=== PATIENT | female | born 1970 | race American Indian/Alaskan Native ===

== ENCOUNTER 2016-06-29 13:28 | Outpatient (CLI) | payer BC ==
--- NOTE | 2016-06-29 14:16 | XRay Report ---
RIGHT KNEE, 3 views: History: Right knee pain. The bony architecture is intact without evidence of fracture or dislocation. No significant soft tissue abnormality is seen. IMPRESSION: Unremarkable right knee.
== END 2016-06-29 13:29 | disposition home or self-care (01) ==
LOC: XRAY 13:28
PROVIDERS: ATTEND Internal Medicine
DX: M25.561 Pain in right knee (principal)

== ENCOUNTER 2016-08-31 14:41 | Outpatient (CLI) | payer BC ==
--- NOTE | 2016-08-31 15:21 | Mammography Report ---
Bilateral mammogram: No previous studies are labeled. CAD study utilized. Findings: Predominance adipose tissue bilaterally. Circumscribed density upper outer posterior left breast. Circumscribed density mid right breast. No microcalcification. Normal axilla. Impression: Circumscribed density right and left breast. Comparison with previous studies recommended. If previous study is not available spot mag and sonographic examination advised. BI-RADS CATEGORY: 0 = Needs additional imaging evaluation ACR BI-RADS MAMMOGRAPHIC CODES: 0 = Needs additional imaging evaluation; 1 = Negative; 2 = Benign; 3 = Probably benign; 4 = Suspicious; 5 = Malignant; 6 = Known biopsy-proven malignancy COMMENT: 1. Dense breast tissue, i.e., adenosis, fibrocystic changes, etc., may obscure an underlying neoplasm. 2. Approximately 10% of cancers are not detected with mammography. 3. A negative mammography report should not delay biopsy if a clinically suspicious mass is present. COMMENT: Patient follow-up letters are generated in [employer].
== END 2016-08-31 14:42 | disposition home or self-care (01) ==
LOC: MAMMO 14:41
PROVIDERS: ATTEND Internal Medicine
DX: Z12.31 Encounter for screening mammogram for malignant neoplasm of breast (principal)
CPT/HCPCS: 77067; G0202

== ENCOUNTER 2016-11-30 10:07 | Inpatient (IN) | payer BC ==
--- NOTE | 2016-11-30 10:48 | Emergency Department Report ---
Entered by KHANG HALL, acting as scribe for KIRSTEN EASLEY NP. Chief Complaint: Abdominal Pain Stated Complaint: MYCOTOXICOSIS/SEVERE ABD PAIN/NAUSEA SOB Time Seen by Provider: 11/30/16 10:42 - HPI History of Present Illness: 46 y/o presents with right flank pain that started 2 days ago. Sx include n/v but pt denies hematuria or dysuria. LMP 11/18/16. - ROS Review of Systems: -hematuria -dysuria +right flank pain +n/v - Exam Vital Signs: Vital Signs 11/30/16 10:38 Temperature 97.7 F Pulse Rate 76 Respiratory 20 Rate Blood Pressure 163/107 O2 Sat by Pulse 99 Oximetry Physical Exam: r abd: soft/nontender steady gait a and o x4 MSE screening note: Focused history and physical exam performed. Due to findings the following was ordered: labs ED Disposition for MSE Condition: Stable Instructions: Abdominal Pain (ED) This documentation as recorded by the scribe,KHANG HALL,accurately reflects the service I personally performed and the decisions made by KAUSHAL fields TRACY M, NP.
[2016-11-30 11:15] LABS: Basophils % (Auto) 0.8 % (0.0-1.8); Eosinophils % (Auto) 1.8 % (0.0-4.3); Hematocrit 36.3 % (30.3-42.9); Hemoglobin 11.3 gm/dl (10.1-14.3); Mean Corpuscular HGB Conc 31 % (30-34); Mean Corpuscular Volume 73 fl (79-97); Platelet Count 428 K/mm3 (140-440); Red Blood Count 4.96 M/mm3 (3.65-5.03); Red Cell Distribution Width 17.4 % (13.2-15.2); White Blood Count 6.1 K/mm3 (4.5-11.0)
[2016-11-30 11:18] LABS: Mean Corpuscular Hemoglobin 23 pg (28-32)
[2016-11-30 11:35] LABS: Albumin 3.8 g/dL (3.9-5); Albumin/Globulin Ratio 1.2 %; BUN/Creatinine Ratio 5.71; Bilirubin,Total 0.4 mg/dL (0.1-1.2); Calcium 9.4 mg/dL (8.4-10.2); Chloride 103.6 mmol/L (98-107); Potassium 4.2 mmol/L (3.6-5.0)
[2016-11-30 13:59] LABS: Bilirubin,Urine NEG (Negative); Blood,Urine SM (Negative); Ketones,Urine NEG (Negative); Leukocyte Esterase,Urine LG (Negative); Mucus,Urine 3+ /HPF; Nitrite,Urine NEG (Negative); Urobilinogen,Urine < 2.0 mg/dL (<2.0)
[2016-11-30] MEDS ORDERED: TORADOL IV ONE (14:09)
[2016-11-30] MEDS ORDERED: NACL 0.9% 1000 ML 1,000 ML IV ONE ×2 (14:09→22:25)
--- NOTE | 2016-11-30 14:12 | Emergency Department Report ---
ED Abdominal Pain HPI - General Chief Complaint: Abdominal Pain Stated Complaint: MYCOTOXICOSIS/SEVERE ABD PAIN/NAUSEA SOB Time Seen by Provider: 11/30/16 10:42 Source: patient Mode of arrival: Ambulatory Limitations: No Limitations - History of Present Illness MD Complaint: abdominal pain -: Gradual Location: diffuse Radiation: none Migration to: no migration Severity: mild Severity scale (0 -10): 6 Quality: cramping, aching Consistency: intermittent Improves With: nothing Worsens With: nothing Associated Symptoms: dysuria. denies: nausea, vomiting, diarrhea, fever, chills , constipation - Related Data Previous Rx's Medication Instructions Recorded Last Taken Type HYDROcodone/ACETAMINOPHEN [[place] 1 each PO Q6HR #20 tablet 04/29/13 Unknown Rx 5/325 Tablet] AtorvaSTATin [Lipitor] 10 mg PO QHS #30 tablet 11/09/15 Unknown Rx Benzonatate [Tessalon Perles] 100 mg PO Q4H PRN #30 capsule 11/09/15 Unknown Rx Ipratropium/Albuterol Sulfate 1 ampul IH Q6H #120 ampul.neb 11/09/15 Unknown Rx [DUONEB *Not for PRN Use*] Pantoprazole [Protonix TAB] 20 mg PO QDAY #30 tablet. 11/09/15 Unknown Rx Prednisone [predniSONE 10 mg 10 mg PO .TAPER #1 tab.ds.pk 11/09/15 Unknown Rx (6-Day Pack, 21 Tabs)] Budesoni/Formotero 160-4.5(Nf) 2 puff IH BID #1 inha 11/30/16 Unknown Rx [Symbicort 160-4.5 (Nf)] HYDROcodone/APAP 5-325 [[place] 1 each PO BID #12 tablet 11/30/16 Unknown Rx 5/325] Ibuprofen [Motrin 800 MG tab] 800 mg PO TID PRN #60 tablet 11/30/16 Unknown Rx Spironolactone [Aldactone] 100 mg PO BID #60 tab 11/30/16 Unknown Rx metFORMIN [Glucophage] 500 mg PO BID #120 tablet 11/30/16 Unknown Rx Allergies Allergy/AdvReac Type Severity Reaction Status Date / Time No Known Allergies Allergy Unverified 04/29/13 15:18 ED Review of Systems ROS: Stated complaint: MYCOTOXICOSIS/SEVERE ABD PAIN/NAUSEA SOB Other details as noted in HPI Comment: All other systems reviewed and negative ED Past Medical Hx - Past Medical History Previous Medical History?: Yes Hx Diabetes: (Polycystic Ovary Syndrome) Hx Asthma: Yes Additional medical history: PCOS, "microtoxicosis" - Surgical History Past Surgical History?: Yes Additional Surgical History: hernia repair - Social History Smoking Status: Never Smoker Substance Use Type: Prescribed - Medications Home Medications: Home Medications Medication Instructions Recorded Confirmed Last Taken Type HYDROcodone/ACETAMINOPHEN [[place] 1 each PO Q6HR #20 tablet 04/29/13 Unknown Rx 5/325 Tablet] AtorvaSTATin [Lipitor] 10 mg PO QHS #30 tablet 11/09/15 Unknown Rx Benzonatate [Tessalon Perles] 100 mg PO Q4H PRN #30 capsule 11/09/15 Unknown Rx Ipratropium/Albuterol Sulfate 1 ampul IH Q6H #120 ampul.neb 11/09/15 Unknown Rx [DUONEB *Not for PRN Use*] Pantoprazole [Protonix TAB] 20 mg PO QDAY #30 tablet.dr 11/09/15 Unknown Rx Prednisone [predniSONE 10 mg 10 mg PO .TAPER #1 tab.ds.pk 11/09/15 Unknown Rx (6-Day Pack, 21 Tabs)] Budesoni/Formotero 160-4.5(Nf) 2 puff IH BID #1 inha 11/30/16 Unknown Rx [Symbicort 160-4.5 (Nf)] HYDROcodone/APAP 5-325 [[place] 1 each PO BID #12 tablet 11/30/16 Unknown Rx 5/325] Ibuprofen [Motrin 800 MG tab] 800 mg PO TID PRN #60 tablet 11/30/16 Unknown Rx Spironolactone [Aldactone] 100 mg PO BID #60 tab 11/30/16 Unknown Rx metFORMIN [Glucophage] 500 mg PO BID #120 tablet 11/30/16 Unknown Rx ED Physical Exam - General Limitations: No Limitations General appearance: alert, in no apparent distress - Head Head exam: Present: atraumatic, normocephalic - Eye Eye exam: Present: normal appearance, PERRL, EOMI - ENT ENT exam: Present: normal exam, normal orophraynx, mucous membranes moist - Neck Neck exam: Present: normal inspection - Respiratory Respiratory exam: Present: normal lung sounds bilaterally. Absent: respiratory distress - Cardiovascular Cardiovascular Exam: Present: regular rate, normal rhythm. Absent: systolic murmur, diastolic murmur, rubs, gallop - GI/Abdominal GI/Abdominal exam: Present: soft, normal bowel sounds - Extremities Exam Extremities exam: Present: normal inspection - Back Exam Back exam: Present: normal inspection - Neurological Exam Neurological exam: Present: alert, oriented X3 - Psychiatric Psychiatric exam: Present: normal affect, normal mood - Skin Skin exam: Present: warm, dry, intact, normal color. Absent: rash ED Course Vital Signs 11/30/16 11/30/16 11/30/16 10:38 13:43 13:46 Temperature 97.7 F 98.2 F Pulse Rate 76 87 Respiratory 20 22 22 Rate Blood Pressure 163/107 Blood Pressure 141/83 [Left] O2 Sat by Pulse 99 98 98 Oximetry ED Medical Decision Making - Lab Data Result diagrams: 11/30/16 10:54 11/30/16 10:54 - Radiology Data Radiology results: report reviewed, image reviewed - Medical Decision Making patient been doing well, pain relived , multiple stone but with no hydro , will treat with pain meds and abx and dc with proper follow up Critical care attestation.: If time is entered above; I have spent that time in minutes in the direct care of this critically ill patient, excluding procedure time. ED Disposition Clinical Impression: UTI (urinary tract infection) Disposition: DC-01 TO HOME OR SELFCARE Is pt being admited?: No Condition: Good Instructions: Abdominal Pain (ED) Prescriptions: Budesoni/Formotero 160-4.5(Nf) [Symbicort 160-4.5 (Nf)] 2 puff IH BID #1 inha HYDROcodone/APAP 5-325 [[place] 5/325] 1 each PO BID #12 tablet Ibuprofen [Motrin 800 MG tab] 800 mg PO TID PRN #60 tablet PRN Reason: Pain metFORMIN [Glucophage] 500 mg PO BID #120 tablet Spironolactone [Aldactone] 100 mg PO BID #60 tab Referrals: RALF WATT MD [Primary Care Provider] - 3-5 Days Time of Disposition: 16:40
--- NOTE | 2016-11-30 16:12 | Cat Scan Report ---
CT of the abdomen and pelvis without contrast. History: Abdominal pain. Findings: The liver, spleen, and pancreas are normal. The gallbladder is unremarkable. There is a 4 mm stone in the proximal third of the right ureter with mild right hydronephrosis. Multiple intrarenal stones are seen on the right. There is a poorly defined hypodense lesion in the posterior aspect of the midpole of the right kidney measuring 2 cm in diameter. There is a 4 mm stone in the proximal third of the right ureter with mild right hydronephrosis. The remainder of the right ureter is normal. There are multiple intrarenal stones on the left. There is a 5 cm in diameter cystic mass in the upper pole of the left kidney. There is a 7 mm stone at the left ureteropelvic junction, but no left hydronephrosis is seen. The remainder of the left ureter is normal. There are no pelvic masses or abnormal fluid collections. No mesenteric inflammation is seen. Impression: 1. 4 mm calculus in the proximal right ureter with mild obstructive uropathy. Multiple right intrarenal stones are present. 2. Indeterminate 2 cm hypodense mass in the right kidney. 3. 7 mm stone at the left ureteropelvic junction with no evidence of obstruction. Multiple intrarenal stones on the left are noted. A 5 Vasquez cyst is present in the left kidney.
[2016-11-30] MEDS ORDERED: ROCEPHIN/NS 1 GM/50 ML 1 GM/50 ML BAG IV ONE (22:25)
[2016-11-30] MEDS ORDERED: MORPHINE IV ONE (22:25)
[2016-11-30] MEDS ORDERED: ZOFRAN IV ONE (22:25)
[2016-11-30] MEDS ORDERED: FLOMAX PO ONE (22:26)
--- NOTE | 2016-11-30 22:27 | Emergency Department Report ---
ED General Adult HPI - General Chief complaint: Abdominal Pain Stated complaint: MYCOTOXICOSIS/SEVERE ABD PAIN/NAUSEA SOB Time Seen by Provider: 11/30/16 10:42 Source: patient, RN notes reviewed, old records reviewed Mode of arrival: Ambulatory Limitations: No Limitations - History of Present Illness Initial comments: This is a 46-year-old female. She is previously unknown to me. She presented to the ER with a complaint of right flank pain that radiated down to the right lower quadrant, nausea, vomiting and weakness. She was seen by another physician, and then discharged with a plan for antibiotics, pain medication and nausea medication. However, the patient's prescriptions were not filled, and she return to the ER to have her prescriptions filled. I evaluated the patient personally, and performed a full history and physical. I found that antibiotic prescription was written, she was found to be in renal insufficiency, and had a right-sided obstructing kidney stone with mild hydronephrosis. Given patient has renal insufficiency, CVA tenderness, possible pyelonephritis with obstructing stone, I felt it prudent to admit the patient for further evaluation and management. The case was discussed with the urology specialist, Dr. Brown, who agreed to see the patient in consultation. The patient is currently afebrile with reassuring vital signs and nontoxic, therefore I do not believe she requires emergent consultation this evening. Urology will see the patient in the morning. The case was presented to the Hospital physician, Dr. Salinas, who accepted the patient to his service for renal insufficiency, obstructive hydronephrosis, possible pyelonephritis. -: Gradual Location: back Radiation: flank Severity scale (0 -10): 0 Quality: aching Consistency: constant Improves with: medication, rest Worsens with: movement Associated Symptoms: nausea/vomiting, weakness - Related Data Previous Rx's Medication Instructions Recorded Last Taken Type Spironolactone [Aldactone] 100 mg PO BID #60 tab 11/30/16 Unknown Rx metFORMIN [Glucophage] 500 mg PO BID #120 tablet 11/30/16 Unknown Rx Allergies Allergy/AdvReac Type Severity Reaction Status Date / Time No Known Allergies Allergy Verified 11/30/16 23:37 ED Review of Systems ROS: Stated complaint: MYCOTOXICOSIS/SEVERE ABD PAIN/NAUSEA SOB Other details as noted in HPI Constitutional: malaise, weakness. denies: fever Eyes: denies: vision change ENT: denies: epistaxis Respiratory: denies: cough Cardiovascular: denies: chest pain Gastrointestinal: abdominal pain Genitourinary: hematuria Musculoskeletal: back pain Skin: denies: lesions Neurological: weakness Psychiatric: anxiety ED Past Medical Hx - Past Medical History Previous Medical History?: Yes Hx Diabetes: (Polycystic Ovary Syndrome) Hx Asthma: Yes Additional medical history: PCOS, "microtoxicosis" - Surgical History Past Surgical History?: Yes Additional Surgical History: hernia repair - Social History Smoking Status: Never Smoker Substance Use Type: Prescribed - Medications Home Medications: Home Medications Medication Instructions Recorded Confirmed Last Taken Type Spironolactone [Aldactone] 100 mg PO BID #60 tab 11/30/16 Unknown Rx metFORMIN [Glucophage] 500 mg PO BID #120 tablet 11/30/16 Unknown Rx ED Physical Exam - General Limitations: No Limitations General appearance: alert, in distress, obese - Head Head exam: Present: atraumatic, normocephalic - Eye Eye exam: Present: normal appearance, EOMI. Absent: nystagmus - ENT ENT exam: Present: normal exam, normal orophraynx, mucous membranes moist, normal external ear exam - Neck Neck exam: Present: normal inspection, full ROM. Absent: tenderness, meningismus - Respiratory Respiratory exam: Present: normal lung sounds bilaterally. Absent: respiratory distress, wheezes, rales, rhonchi, stridor, chest wall tenderness - Cardiovascular Cardiovascular Exam: Present: regular rate, normal rhythm, normal heart sounds. Absent: bradycardia, tachycardia, irregular rhythm, systolic murmur, diastolic murmur, rubs, gallop - GI/Abdominal GI/Abdominal exam: Present: soft, tenderness, normal bowel sounds, other (there is right flank tenderness). Absent: distended, guarding, rebound, rigid - Extremities Exam Extremities exam: Present: normal inspection, full ROM, normal capillary refill. Absent: pedal edema, joint swelling, calf tenderness - Back Exam Back exam: Present: normal inspection, CVA tenderness (R). Absent: paraspinal tenderness - Neurological Exam Neurological exam: Present: alert, oriented X3, normal gait, other (Extraocular movements intact. Tongue midline. No facial droop. Facial sensation intact to light touch in the V1, V2, V3 distribution bilaterally. 5 and 5 strength in 4 extremities.. Sensation is intact to light touch in 4 extremities.). Absent : motor sensory deficit - Psychiatric Psychiatric exam: Present: normal affect, anxious - Skin Skin exam: Present: warm, dry, intact, normal color. Absent: rash ED Course Vital Signs 11/30/16 11/30/16 11/30/16 10:38 13:43 13:46 Temperature 97.7 F 98.2 F Pulse Rate 76 87 Respiratory 20 22 22 Rate Blood Pressure 163/107 Blood Pressure 141/83 [Left] O2 Sat by Pulse 99 98 98 Oximetry 11/30/16 11/30/16 16:48 23:38 Temperature 98.1 F Pulse Rate 84 81 Respiratory 18 20 Rate Blood Pressure Blood Pressure 146/90 138/95 [Left] O2 Sat by Pulse 100 100 Oximetry ED Medical Decision Making - Lab Data Result diagrams: 11/30/16 10:54 11/30/16 10:54 Vital Signs 11/30/16 11/30/16 11/30/16 10:38 13:43 13:46 Temperature 97.7 F 98.2 F Pulse Rate 76 87 Respiratory 20 22 22 Rate Blood Pressure 163/107 Blood Pressure 141/83 [Left] O2 Sat by Pulse 99 98 98 Oximetry 11/30/16 11/30/16 16:48 23:38 Temperature 98.1 F Pulse Rate 84 81 Respiratory 18 20 Rate Blood Pressure Blood Pressure 146/90 138/95 [Left] O2 Sat by Pulse 100 100 Oximetry Lab Results 11/30/16 11/30/16 11/30/16 Range/Units 10:54 10:54 10:54 WBC 6.1 (4.5-11.0) K/mm3 RBC 4.96 (3.65-5.03) M/mm3 Hgb 11.3 (10.1-14.3) gm/dl Hct 36.3 (30.3-42.9) % MCV 73 L (79-97) fl MCH 23 L (28-32) pg MCHC 31 (30-34) % RDW 17.4 H (13.2-15.2) % Plt Count 428 (140-440) K/mm3 Lymph % (Auto) 29.0 (13.4-35.0) % Chase % (Auto) 11.5 H (0.0-7.3) % Eos % (Auto) 1.8 (0.0-4.3) % Baso % (Auto) 0.8 (0.0-1.8) % Lymph # 1.8 (1.2-5.4) K/mm3 Chase # 0.7 (0.0-0.8) K/mm3 Eos # 0.1 (0.0-0.4) K/mm3 Baso # 0.0 (0.0-0.1) K/mm3 Seg Neutrophils % 56.9 (40.0-70.0) % Seg Neutrophils # 3.5 (1.8-7.7) K/mm3 Sodium 141 (137-145) mmol/L Potassium 4.2 (3.6-5.0) mmol/L Chloride 103.6 (98-107) mmol/L Carbon Dioxide 25 (22-30) mmol/L Anion Gap 17 mmol/L BUN 8 (7-17) mg/dL Creatinine 1.4 H (0.7-1.2) mg/dL Estimated GFR 49 ml/min BUN/Creatinine Ratio 5.71 % Glucose 105 H (65-100) mg/dL Calcium 9.4 (8.4-10.2) mg/dL Total Bilirubin 0.40 (0.1-1.2) mg/dL AST 13 (5-40) units/L ALT 12 (7-56) units/L Alkaline Phosphatase 77 (35-129) units/L Total Protein 7.0 (6.3-8.2) g/dL Albumin 3.8 L (3.9-5) g/dL Albumin/Globulin Ratio 1.2 % Lipase 15 (13-60) units/L HCG, Qual Negative (Negative) Urine Color (Yellow) Urine Turbidity (Clear) Urine pH (5.0-7.0) Ur Specific [place] (1.003-1.030) Urine Protein (Negative) mg/dL Urine Glucose (UA) (Negative) mg/dL Urine Ketones (Negative) mg/dL Urine Blood (Negative) Urine Nitrite (Negative) Urine Bilirubin (Negative) Urine Urobilinogen (<2.0) mg/dL Ur Leukocyte Esterase (Negative) Urine WBC (Auto) (0.0-6.0) /HPF Urine RBC (Auto) (0.0-6.0) /HPF U Epithel Cells (Auto) (0-13.0) /HPF Hyaline Casts /LPF Urine Mucus /HPF 08/22/17 Range/Units 11:26 WBC (4.5-11.0) K/mm3 RBC (3.65-5.03) M/mm3 Hgb (10.1-14.3) gm/dl Hct (30.3-42.9) % MCV (79-97) fl MCH (28-32) pg MCHC (30-34) % RDW (13.2-15.2) % Plt Count (140-440) K/mm3 Lymph % (Auto) (13.4-35.0) % Chase % (Auto) (0.0-7.3) % Eos % (Auto) (0.0-4.3) % Baso % (Auto) (0.0-1.8) % Lymph # (1.2-5.4) K/mm3 Chase # (0.0-0.8) K/mm3 Eos # (0.0-0.4) K/mm3 Baso # (0.0-0.1) K/mm3 Seg Neutrophils % (40.0-70.0) % Seg Neutrophils # (1.8-7.7) K/mm3 Sodium (137-145) mmol/L Potassium (3.6-5.0) mmol/L Chloride (98-107) mmol/L Carbon Dioxide (22-30) mmol/L Anion Gap mmol/L BUN (7-17) mg/dL Creatinine (0.7-1.2) mg/dL Estimated GFR ml/min BUN/Creatinine Ratio % Glucose (65-100) mg/dL Calcium (8.4-10.2) mg/dL Total Bilirubin (0.1-1.2) mg/dL AST (5-40) units/L ALT (7-56) units/L Alkaline Phosphatase (35-129) units/L Total Protein (6.3-8.2) g/dL Albumin (3.9-5) g/dL Albumin/Globulin Ratio % Lipase (13-60) units/L HCG, Qual (Negative) Urine Color Yellow (Yellow) Urine Turbidity Cloudy (Clear) Urine pH 5.0 (5.0-7.0) Ur Specific [place] 1.017 (1.003-1.030) Urine Protein 30 mg/dl (Negative) mg/dL Urine Glucose (UA) Neg (Negative) mg/dL Urine Ketones Neg (Negative) mg/dL Urine Blood Sm (Negative) Urine Nitrite Neg (Negative) Urine Bilirubin Neg (Negative) Urine Urobilinogen < 2.0 (<2.0) mg/dL Ur Leukocyte Esterase Lg (Negative) Urine WBC (Auto) 17.0 H (0.0-6.0) /HPF Urine RBC (Auto) 14.0 (0.0-6.0) /HPF U Epithel Cells (Auto) 19.0 H (0-13.0) /HPF Hyaline Casts 3 /LPF Urine Mucus 3+ /HPF - Radiology Data Radiology results: report reviewed, image reviewed Noncontrast CT scan demonstrates obstructing right-sided ureteral stone with hydronephrosis. - Medical Decision Making Assessment and plan: 46-year-old female with probable early pyelonephritis, obstructing stone, renal insufficiency, requires IV pain medication, nausea medication, antibiotics, and urgent urologic consultation. Critical care attestation.: If time is entered above; I have spent that time in minutes in the direct care of this critically ill patient, excluding procedure time. ED Disposition Clinical Impression: UTI (urinary tract infection), Obstructive uropathy, Renal insufficiency Disposition: 09 OP ADMIT IP TO THIS HOSP Is pt being admited?: Yes Condition: Good
[2016-11-30] MEDS ORDERED: TYLENOL PO PRN (23:40)
[2016-11-30] MEDS ORDERED: TESSALON PERLES PO PRN (23:42)
[2016-11-30] MEDS ORDERED: NON-FORMULARY (Prednisone [Prednisone 10 Mg (6-Day Pack, 21 Tabs)] 10 MG) PO SCH (23:45)
[2016-12-01] MEDS: DILAUDID IV PRN ×4 (03:25→23:48)
--- NOTE | 2016-12-01 07:23 | History and Physical Report ---
CHIEF COMPLAINT: Right flank pain. Other complaints include nausea and vomiting. HISTORY OF PRESENT ILLNESS: The patient is a 46-year-old female who has been having right flank pain going down to the right lower quadrant. She has associated history of nausea and vomiting and weakness. The patient was seen by the first ER physician and then discharged with the plan for out patient antibiotics, pain medication and the patient was reevaluated and found to have stone on CAT scan obstructing the right renal passage with mild hydronephrosis.Urologist was consulted by ER and he accepted to see patient. The patient denies history of fever or chills and then was presented for admission. PAST MEDICAL HISTORY: Pertinent for diabetes mellitus. Also, the patient has polycystic ovarian syndrome, asthma, mycotoxicosis. PAST SURGICAL HISTORY: Pertinent for hernia repair. FAMILY HISTORY: Noncontributory. SOCIAL HISTORY: The patient does not smoke, does not drink alcohol and does not use illicit drugs. MEDICATIONS: The patient is on metformin and spironolactone. ALLERGIES: There are no known drug allergies. REVIEW OF SYSTEMS: CONSTITUTIONAL: There is fever and chills, but no diaphoresis. HEENT: There is no headache or sore throat. CARDIOVASCULAR: There is no chest pain, orthopnea. RESPIRATORY: There is no shortness of breath or cough. GASTROINTESTINAL: There is nausea, vomiting and right upper quadrant abdominal pain, but no diarrhea and no constipation. NEUROLOGICAL: There is no numbness. No dizziness. No altered mental status. MUSCULOSKELETAL: There is no joint pain or swelling. DERMATOLOGICAL: There is no skin rash or itching. GENITOURINARY: There is right flank pain, but no hematuria or dysuria. PHYSICAL EXAMINATION: GENERAL: At the time of exam, the patient was found to be alert, oriented x 3, not in acute distress. VITAL SIGNS: Shows temperature of 98.1, pulse of 84, respirations 18, blood pressure 148/90, O2 sat of 100% on room air. HEENT: Showed pupils to be equal, round, reactive to light and accommodating. Extraocular muscles are intact. NECK: Supple with no JVD or carotid bruit. CARDIOVASCULAR SYSTEM: Show first and second heart sounds with no gallops or murmur. RESPIRATORY: Showed good air entry on both sides of the lung with no abnormal breath sounds. GASTROINTESTINAL SYSTEM: Show abdomen to be full, soft, nontender with no organomegaly or rigidity. NEUROLOGIC: Shows no focal deficit. MUSCULOSKELETAL: Show no joint swelling or tenderness. DERMATOLOGICAL SYSTEM: Show no skin rash. GENITOURINARY: Showed right costovertebral angle tenderness. PERTINENT LABORATORY AND IMAGING STUDIES: The patient had urinalysis done that shows normal urine color with elevated urine WBC of 17 and large leukocyte esterase in the urine with also elevated urine epithelial cells and negative urine nitrite. The patient's chemistry showed elevated creatinine of 1.4, otherwise, unremarkable. CBC shows normal white count, normal hemoglobin and normal hematocrit with low MCV and unremarkable CBC differential. IMAGING STUDIES: The patient had CT of the abdomen and pelvis done and this shows one 4 mm calculus in the proximal right ureter with mild obstructive uropathy. There is finding of multiple right intrarenal stones. Also, there is indeterminate 2 cm hypodense mass in the right kidney as well as 7 mm stone at the left ureteropelvic junction with no evidence of obstruction. There is also finding of multiple intrarenal stones on the left kidney area. DIAGNOSES: 1. Bilateral kidney stones. 2. Right obstructive uropathy. 3. Right hydronephrosis. 4. Right renal mass. PLAN: The patient will be admitted to medical floor and the patient will be on IV normal saline at 150 mL an hour will be on IV Rocephin 1 gram daily. Also, the patient will be on IV Dilaudid 1 mg every 2 hours as needed for pain and will be on IV Zofran 4 mg q. 6 hours for nausea and vomiting. The patient will continue the Urology consult with Dr. Brown who is already aware of the patient's condition. The patient will be on heparin 5000 units subQ q. 12 hours for DVT prophylaxis, The patient will also be on Tylenol 650 mg by mouth every 4 hours for fever and headache. The patient's home medications will be reconciled and applied accordingly. Further management of the patient's condition will be determined by the urologist, Dr. Brown. JOB# [id number] OCN/NTS MTDD
--- NOTE | 2016-12-01 08:06 | Admit Criteria Form ---
Admission Criteria Documentation: URINARY COMPLICATIONS Clinical Indications for Inpatient Care (Place 'X' for any and all applicable criteria): Ongoing inpatient care may be needed for Urinary complications with 1 or more of the following: [ ]I. Reduced urine output (eg, despite adequate hydration) [ ]II. Renal failure. (Also use Renal Failure: Common Complications and Conditions as appropriate) [ ]III. Urinary retention requiring drainage or surgery(19)(20)(21)(33)(34) [ ]IV. Postobstructive diuresis requiring close monitoring of urine output and intravenous compensation for excessive fluid losses(35) [X ]V. Urinary tract infection requiring inpatient care as indicated by ANY ONE of the following(8)(19)(20): [ ]a) Hemodynamic instability []b) Severe symptoms (eg, high fever, severe pain) [ ]c) Vomiting or dehydration requiring ongoing inpatient care [X ]d) IV antibiotic needs that cannot be managed at lower level of care [X]e) Obstruction of collecting system by stone or tumor Extended stay beyond goal length of stay for primary condition may be needed until ALL of the following are present(3)(4)(5)(8): [ ]a) Renal function (creatinine) at baseline, or daily decreases in creatinine consistent with renal function return [ ]b) Voiding adequately or with urinary catheter or percutaneous suprapubic tube and management regimen in place that is performable at lower level of care. [ ]c) Urine output adequate [ ]d) Fever absent or resolving [ ]e) Infection absent or treatable at next level of care The original [facility] content created by [employer] has been revised. The portions of the content which have been revised are identified through the use of italic text or in bold, and [facility] has neither reviewed nor approved the modified material. All other unmodified content is copyright [facility] Please see references footnoted in the original [facility] edition 2017 Admission Criteria Met: Yes
--- NOTE | 2016-12-01 08:44 | Consultation ---
History of Present Illness - Reason for Consult Consult date: 12/01/16 - History of Present Illness This is a 46-year-old female. She is previously unknown to me. She presented to the ER with a complaint of right flank pain that radiated down to the right lower quadrant, nausea, vomiting and weakness. She was seen by another physician, and then discharged with a plan for antibiotics, pain medication and nausea medication. However, the patient's prescriptions were not filled, and she return to the ER to have her prescriptions filled. I evaluated the patient personally, and performed a full history and physical. I found that antibiotic prescription was written, she was found to be in renal insufficiency, and had a right-sided obstructing kidney stone with mild hydronephrosis. Given patient has renal insufficiency, CVA tenderness, possible pyelonephritis with obstructing stone, I felt it prudent to admit the patient for further evaluation and management. CTAP (11-30-16) bilat ureteral stones 7mm rt side 4mm left side A/P Bilal stones with colic brochure given cysto, ureteroscopy, stent tomorrow, ?ESWL Medications and Allergies Allergies Allergy/AdvReac Type Severity Reaction Status Date / Time No Known Allergies Allergy Verified 11/30/16 23:37 Home Medications Medication Instructions Recorded Confirmed Last Taken Type Spironolactone [Aldactone] 100 mg PO BID #60 tab 11/30/16 Unknown Rx metFORMIN [Glucophage] 500 mg PO BID #120 tablet 11/30/16 Unknown Rx Active Meds: Active Medications Acetaminophen (Tylenol) 650 mg PO Q4H PRN PRN Reason: For Pain/Fever/Headache Albuterol/Ipratropium (Duoneb *Not For Prn Use*) 1 ampul IH Q6HRT KOJO Atorvastatin Calcium (Lipitor) 10 mg PO QHS KOJO Benzonatate (Tessalon Perles) 100 mg PO Q4H PRN PRN Reason: Cough Heparin Sodium (Porcine) (Heparin) 5,000 unit SUB-Q Q12HR KOJO Hydromorphone HCl (Dilaudid) 1 mg IV Q2H PRN PRN Reason: Pain , Severe (7-10) Last Admin: 12/01/16 06:50 Dose: 1 mg Ceftriaxone Sodium (Rocephin/Ns 1 Gm/50 Ml) 1 gm in 50 mls @ 100 mls/hr IV Q24HR@2200 KOJO PRN Reason: Protocol Sodium Chloride (Nacl 0.9% 1000 Ml) 1,000 mls @ 150 mls/hr IV DIRECT KOJO Ondansetron HCl (Zofran) 4 mg IV Q6H PRN PRN Reason: Nausea And Vomiting Pantoprazole Sodium (Protonix) 20 mg PO QDAY KOJO Exam - Constitutional Vitals: Temp Pulse Resp BP Pulse Ox 98.3 F 81 81 H 117/80 97 12/01/16 01:20 12/01/16 06:00 12/01/16 06:00 12/01/16 01:20 12/01/16 06:00 Results - Labs CBC & Chem 7: 11/30/16 10:54 11/30/16 10:54
[2016-12-01] MEDS ORDERED: PROTONIX PO SCH (10:00)
[2016-12-01] MEDS: NACL 0.9% 1000 ML 1,000 ML IV SCH (10:28)
[2016-12-01] MEDS: HEPARIN SUB-Q SCH ×2 (10:29→21:34)
[2016-12-01 11:18] LABS: Hematocrit 32.3 % (30.3-42.9); Mean Corpuscular HGB Conc 31 % (30-34); Mean Corpuscular Volume 73 fl (79-97); Platelet Count 358 K/mm3 (140-440); Red Blood Count 4.41 M/mm3 (3.65-5.03); Red Cell Distribution Width 16.9 % (13.2-15.2); White Blood Count 4.2 K/mm3 (4.5-11.0)
[2016-12-01 11:23] LABS: Mean Corpuscular Hemoglobin 23 pg (28-32)
[2016-12-01 11:36] LABS: Anion Gap 17 mmol/L; Blood Urea Nitrogen 8 mg/dL (7-17); Calcium 8.7 mg/dL (8.4-10.2); Carbon Dioxide 21 mmol/L (22-30); Chloride 105.7 mmol/L (98-107); Glucose 117 mg/dL (65-100); Potassium 3.8 mmol/L (3.6-5.0); Sodium 140 mmol/L (137-145)
[2016-12-01] MEDS: DUONEB *Not for PRN Use IH SCH ×3 (13:45→21:44)
[2016-12-01] MEDS: ZOFRAN IV PRN ×2 (15:19→23:57)
--- NOTE | 2016-12-01 15:35 | Anesthesia Consultation ---
Anesthesia Consult and Med Hx Date of service: 12/01/16 - Airway Anesthetic Teeth Evaluation: Good (chipped tooth #9) ROM Head & Neck: Adequate Mental/Hyoid Distance: Adequate Mallampati Class: Class III Intubation Access Assessment: Possibly Difficult - Pre-Operative Health Status ASA Pre-Surgery Classification: ASA3 Proposed Anesthetic Plan: General - Pulmonary Hx Asthma: Yes (caused by mycotoxicosis) Hx Pneumonia: No - Central Nervous System Hx Psychiatric Problems: No - Endocrine Hx Renal Disease: Yes (right ureteral stone?) Hx End Stage Renal Disease: No - Other Systems Hx Cancer: No Hx Obesity: Yes (BMI 53.8) - Additional Comments Anesthesia Medical History Comments: policystic ovarian disease. Pt is on metformin and spironalactone
--- NOTE | 2016-12-01 16:37 | Progress Note ---
Assessment and Plan Assessment and plan: Multiple renal stones, ureteral stones Right obstructive uropathy from stones. Admitted to medical floor. She was evaluated by urologist. For procedure tomorrow-Cystoscopy, ureteroscopy,stent Diabetes mellitus type 2. Fingerstick glucose QACHS. Morbid obesity. I counseled her on diet and exercise to lose weight. DVT prophylaxis. Heparin subcut. History Interval history: right flank pain, no fever Hospitalist Physical - Physical exam Narrative exam: Gen appearance: Not in acute distress,morbidly obese HEENT: normocephalic, atraumatic, GREGORY Neck: supple, no JVD, Lungs: Clear to auscultation bilaterally, no crackles or wheezes Heart :S1 and S2 regular, no murmurs, rubs or gallop Abdomen: Soft, tender right flank, non distended, bowel sounds normal Extremities :no edema, no clubbing or cyanosis Neuro: AAO x 3, no focal neurological signs Psych:normal mood - Constitutional Vitals: Temp Pulse Resp BP Pulse Ox 98 F 78 16 121/78 96 12/01/16 07:40 12/01/16 14:00 12/01/16 14:00 12/01/16 07:40 12/01/16 07:40 Results - Labs CBC & Chem 7: 12/01/16 10:43 12/01/16 10:43 Labs: Laboratory Last Values WBC 4.2 K/mm3 (4.5-11.0) L 12/01/16 10:43 RBC 4.41 M/mm3 (3.65-5.03) 12/01/16 10:43 Hgb 10.0 gm/dl (10.1-14.3) L 12/01/16 10:43 Hct 32.3 % (30.3-42.9) 12/01/16 10:43 MCV 73 fl (79-97) L 12/01/16 10:43 MCH 23 pg (28-32) L 12/01/16 10:43 MCHC 31 % (30-34) 12/01/16 10:43 RDW 16.9 % (13.2-15.2) H 12/01/16 10:43 Plt Count 358 K/mm3 (140-440) 12/01/16 10:43 Lymph % (Auto) 29.0 % (13.4-35.0) 11/30/16 10:54 [place] % (Auto) 11.5 % (0.0-7.3) H 11/30/16 10:54 Eos % (Auto) 1.8 % (0.0-4.3) 11/30/16 10:54 Baso % (Auto) 0.8 % (0.0-1.8) 11/30/16 10:54 Lymph # 1.8 K/mm3 (1.2-5.4) 11/30/16 10:54 [place] # 0.7 K/mm3 (0.0-0.8) 11/30/16 10:54 Eos # 0.1 K/mm3 (0.0-0.4) 11/30/16 10:54 Baso # 0.0 K/mm3 (0.0-0.1) 11/30/16 10:54 Seg Neutrophils % 56.9 % (40.0-70.0) 11/30/16 10:54 Seg Neutrophils # 3.5 K/mm3 (1.8-7.7) 11/30/16 10:54 Sodium 140 mmol/L (137-145) 12/01/16 10:43 Potassium 3.8 mmol/L (3.6-5.0) 12/01/16 10:43 Chloride 105.7 mmol/L (98-107) 12/01/16 10:43 Carbon Dioxide 21 mmol/L (22-30) L 12/01/16 10:43 Anion Gap 17 mmol/L 12/01/16 10:43 BUN 8 mg/dL (7-17) 12/01/16 10:43 Creatinine 0.8 mg/dL (0.7-1.2) 12/01/16 10:43 Estimated GFR > 60 ml/min 12/01/16 10:43 BUN/Creatinine Ratio 10.00 % 12/01/16 10:43 Glucose 117 mg/dL (65-100) H 12/01/16 10:43 Calcium 8.7 mg/dL (8.4-10.2) 12/01/16 10:43 Total Bilirubin 0.40 mg/dL (0.1-1.2) 11/30/16 10:54 AST 13 units/L (5-40) 11/30/16 10:54 ALT 12 units/L (7-56) 11/30/16 10:54 Alkaline Phosphatase 77 units/L (35-129) 11/30/16 10:54 Total Protein 7.0 g/dL (6.3-8.2) 11/30/16 10:54 Albumin 3.8 g/dL (3.9-5) L 11/30/16 10:54 Albumin/Globulin Ratio 1.2 % 11/30/16 10:54 Lipase 15 units/L (13-60) 11/30/16 10:54 HCG, Qual Negative (Negative) 11/30/16 10:54 Urine Color Yellow (Yellow) 11/30/16 11:26 Urine Turbidity Cloudy (Clear) 11/30/16 11:26 Urine pH 5.0 (5.0-7.0) 11/30/16 11:26 Ur Specific [place] 1.017 (1.003-1.030) 11/30/16 11:26 Urine Protein 30 mg/dl mg/dL (Negative) 11/30/16 11:26 Urine Glucose (UA) Neg mg/dL (Negative) 11/30/16 11:26 Urine Ketones Neg mg/dL (Negative) 11/30/16 11:26 Urine Blood Sm (Negative) 11/30/16 11:26 Urine Nitrite Neg (Negative) 11/30/16 11:26 Urine Bilirubin Neg (Negative) 11/30/16 11:26 Urine Urobilinogen < 2.0 mg/dL (<2.0) 11/30/16 11:26 Ur Leukocyte Esterase Lg (Negative) 11/30/16 11:26 Urine WBC (Auto) 17.0 /HPF (0.0-6.0) H 11/30/16 11:26 Urine RBC (Auto) 14.0 /HPF (0.0-6.0) 11/30/16 11:26 U Epithel Cells (Auto) 19.0 /HPF (0-13.0) H 11/30/16 11:26 Hyaline Casts 3 /LPF 11/30/16 11:26 Urine Mucus 3+ /HPF 11/30/16 11:26
[2016-12-01] MEDS ORDERED: ROCEPHIN/NS 1 GM/50 ML 1 GM/50 ML BAG IV SCH (22:00)
[2016-12-02] MEDS: DILAUDID IV PRN ×5 (02:11→15:24)
[2016-12-02] MEDS: DUONEB *Not for PRN Use IH SCH ×3 (02:54→14:50)
[2016-12-02 05:00] LABS: Hematocrit 31.1 % (30.3-42.9); Hemoglobin 9.8 gm/dl (10.1-14.3); Mean Corpuscular HGB Conc 31 % (30-34); Mean Corpuscular Volume 74 fl (79-97); Platelet Count 389 K/mm3 (140-440); Red Blood Count 4.21 M/mm3 (3.65-5.03); Red Cell Distribution Width 17.1 % (13.2-15.2); White Blood Count 4.6 K/mm3 (4.5-11.0)
[2016-12-02 05:05] LABS: Anion Gap 16 mmol/L; BUN/Creatinine Ratio 8.57; Blood Urea Nitrogen 6 mg/dL (7-17); Calcium 9.2 mg/dL (8.4-10.2); Carbon Dioxide 22 mmol/L (22-30); Glucose 101 mg/dL (65-100); Potassium 4.4 mmol/L (3.6-5.0); Sodium 140 mmol/L (137-145)
[2016-12-02 05:15] LABS: Mean Corpuscular Hemoglobin 23 pg (28-32)
[2016-12-02] MEDS: NACL 0.9% 1000 ML 1,000 ML IV SCH (05:47)
[2016-12-02] MEDS ORDERED: PEPCID IV NR (07:00)
[2016-12-02] MEDS ORDERED: VERSED IV NR (07:00)
[2016-12-02] MEDS ORDERED: PROVENTIL IH NR (07:00)
[2016-12-02] MEDS: ZOFRAN IV PRN (09:13)
--- NOTE | 2016-12-02 09:27 | Progress Note ---
Hospitalist Physical - Constitutional Vitals: Temp Pulse Resp BP Pulse Ox 98.6 F 79 18 142/86 99 12/02/16 00:00 12/02/16 09:23 12/02/16 09:23 12/02/16 00:00 12/02/16 00:00 Results - Labs CBC & Chem 7: 12/02/16 04:20 12/02/16 04:20 Labs: Laboratory Last Values WBC 4.6 K/mm3 (4.5-11.0) 12/02/16 04:20 RBC 4.21 M/mm3 (3.65-5.03) 12/02/16 04:20 Hgb 9.8 gm/dl (10.1-14.3) L 12/02/16 04:20 Hct 31.1 % (30.3-42.9) 12/02/16 04:20 MCV 74 fl (79-97) L 12/02/16 04:20 MCH 23 pg (28-32) L 12/02/16 04:20 MCHC 31 % (30-34) 12/02/16 04:20 RDW 17.1 % (13.2-15.2) H 12/02/16 04:20 Plt Count 389 K/mm3 (140-440) 12/02/16 04:20 Lymph % (Auto) 29.0 % (13.4-35.0) 11/30/16 10:54 [place] % (Auto) 11.5 % (0.0-7.3) H 11/30/16 10:54 Eos % (Auto) 1.8 % (0.0-4.3) 11/30/16 10:54 Baso % (Auto) 0.8 % (0.0-1.8) 11/30/16 10:54 Lymph # 1.8 K/mm3 (1.2-5.4) 11/30/16 10:54 [place] # 0.7 K/mm3 (0.0-0.8) 11/30/16 10:54 Eos # 0.1 K/mm3 (0.0-0.4) 11/30/16 10:54 Baso # 0.0 K/mm3 (0.0-0.1) 11/30/16 10:54 Seg Neutrophils % 56.9 % (40.0-70.0) 11/30/16 10:54 Seg Neutrophils # 3.5 K/mm3 (1.8-7.7) 11/30/16 10:54 Sodium 140 mmol/L (137-145) 12/02/16 04:20 Potassium 4.4 mmol/L (3.6-5.0) 12/02/16 04:20 Chloride 106.0 mmol/L (98-107) 12/02/16 04:20 Carbon Dioxide 22 mmol/L (22-30) 12/02/16 04:20 Anion Gap 16 mmol/L 12/02/16 04:20 BUN 6 mg/dL (7-17) L 12/02/16 04:20 Creatinine 0.7 mg/dL (0.7-1.2) 12/02/16 04:20 Estimated GFR > 60 ml/min 12/02/16 04:20 BUN/Creatinine Ratio 8.57 % 12/02/16 04:20 Glucose 101 mg/dL (65-100) H 12/02/16 04:20 POC Glucose 95 (70-105) 12/02/16 06:43 Calcium 9.2 mg/dL (8.4-10.2) 12/02/16 04:20 Total Bilirubin 0.40 mg/dL (0.1-1.2) 11/30/16 10:54 AST 13 units/L (5-40) 11/30/16 10:54 ALT 12 units/L (7-56) 11/30/16 10:54 Alkaline Phosphatase 77 units/L (35-129) 11/30/16 10:54 Total Protein 7.0 g/dL (6.3-8.2) 11/30/16 10:54 Albumin 3.8 g/dL (3.9-5) L 11/30/16 10:54 Albumin/Globulin Ratio 1.2 % 11/30/16 10:54 Lipase 15 units/L (13-60) 11/30/16 10:54 HCG, Qual Negative (Negative) 11/30/16 10:54 Urine Color Yellow (Yellow) 11/30/16 11:26 Urine Turbidity Cloudy (Clear) 11/30/16 11:26 Urine pH 5.0 (5.0-7.0) 11/30/16 11:26 Ur Specific [place] 1.017 (1.003-1.030) 11/30/16 11:26 Urine Protein 30 mg/dl mg/dL (Negative) 11/30/16 11:26 Urine Glucose (UA) Neg mg/dL (Negative) 11/30/16 11:26 Urine Ketones Neg mg/dL (Negative) 11/30/16 11:26 Urine Blood Sm (Negative) 11/30/16 11:26 Urine Nitrite Neg (Negative) 11/30/16 11:26 Urine Bilirubin Neg (Negative) 11/30/16 11:26 Urine Urobilinogen < 2.0 mg/dL (<2.0) 11/30/16 11:26 Ur Leukocyte Esterase Lg (Negative) 11/30/16 11:26 Urine WBC (Auto) 17.0 /HPF (0.0-6.0) H 11/30/16 11:26 Urine RBC (Auto) 14.0 /HPF (0.0-6.0) 11/30/16 11:26 U Epithel Cells (Auto) 19.0 /HPF (0-13.0) H 11/30/16 11:26 Hyaline Casts 3 /LPF 11/30/16 11:26 Urine Mucus 3+ /HPF 11/30/16 11:26
[2016-12-02] MEDS ORDERED: XYLOCAINE MPF 2% ONE ×2 (10:03→11:33)
[2016-12-02] MEDS ORDERED: SUBLIMAZE ONE (10:03)
[2016-12-02] MEDS ORDERED: DIPRIVAN 10 MG/ML IV ONE ×2 (10:03→11:33)
[2016-12-02] MEDS ORDERED: PEPCID IV ONE (10:33)
[2016-12-02] MEDS ORDERED: DILAUDID ONE (11:34)
[2016-12-02] MEDS ORDERED: ZOFRAN ONE (12:03)
[2016-12-02] MEDS ORDERED: WATER FOR IRRIG STERILE IR ONE (12:15)
[2016-12-02] MEDS ORDERED: NEO SYNEPHRINE/NS Syringe(OR USE) IV ONE (13:00)
--- NOTE | 2016-12-02 13:11 | Post Operative Note ---
Date of procedure: 12/02/16 Pre-op diagnosis: bilat ureteral stones, left renal stones Post-op diagnosis: same Procedure: cysto, rpg, rt ureteroscopy, JJ stent (6x24 with external string), left ESWL---- -STAGED Anesthesia: TERRY Surgeon: EILEEN ARENAS Estimated blood loss: none Pathology: none Condition: stable Disposition: PACU (NORCO, CIPRO, FLOMAX, POST OP INFO ON CHART/OK TO DC HOME, APPT 1-2 WKS)
[2016-12-02] MEDS ORDERED: MORPHINE IV PRN (13:12)
[2016-12-02] MEDS ORDERED: ZOFRAN IV PRN ×2 (13:12→13:15)
[2016-12-02] MEDS ORDERED: NORCO 5/325 PO PRN (13:12)
--- NOTE | 2016-12-02 13:17 | Post Anesthesia Evaluation ---
- Post Anesthesia Evaluation Patient Participated: Yes Airway Patent: Yes Stable Respiratory Function: Yes Nausea/Vomiting: No Temp > 96.8F: Yes Pain Manageable: Yes Adequeate Hydration: Yes Anesthesia Complications: No
--- NOTE | 2016-12-02 13:17 | Anesthesia Day of Surgery ---
Anesthesia Day of Surgery - Day of Surgery Patient Examined: Yes Patient H&P Reviewed: Yes Patient is NPO: Yes
[2016-12-02] MEDS ORDERED: LACTATED RINGERS 1,000 ML IV SCH (14:00)
[2016-12-02] MEDS ORDERED: NACL 0.45% 1000 ML 1,000 ML IV SCH (14:00)
[2016-12-02] MEDS ORDERED: DECADRON ONE (14:34)
[2016-12-02] MEDS ORDERED: DUONEB *Not for PRN Use IH ONE (14:52)
--- NOTE | 2016-12-02 16:02 | Discharge Summary ---
Providers - Providers Date of Admission: 11/30/16 23:35 Date of discharge: 12/02/16 Attending physician: RALF BARRETT Primary care physician: RALF WATT Hospitalization Condition: Good Disposition: DC/TX-06 HOME UNDER HOME HLTH - Discharge Diagnoses (1) Diabetes mellitus type 2 in obese Status: Acute (2) Obstructive uropathy Status: Acute (3) UTI (urinary tract infection) Status: Acute Qualifiers: Urinary tract infection type: U Hematuria presence: H Indwelling urinary catheter type: I Encounter type: E Exam - Constitutional Vitals: Temp Pulse Resp BP Pulse Ox 97.5 F L 68 14 135/87 97 12/02/16 13:45 12/02/16 13:56 12/02/16 13:56 12/02/16 13:56 12/02/16 13:56 Plan Activity: advance as tolerated Diet: low fat, low cholesterol, low salt, diabetic Special Instructions: home health RN Additional Instructions: 1.Follow up with PCP in 1 week. 2.Follow up with Dr. Brown in 3-5 days Follow up with: RALF WATT MD [Primary Care Provider] - 3-5 Days Forms: Work/School Release Form(ED) Prescriptions: Benzonatate [Tessalon Perles] 100 mg PO Q4H PRN #30 capsule PRN Reason: Cough Ciprofloxacin HCl [Ciprofloxacin TAB] 500 mg PO Q12H #14 tab HYDROcodone/APAP 5-325 [Ong 5/325] 1 each PO Q6HR PRN #30 tablet PRN Reason: Pain metFORMIN [Glucophage] 500 mg PO BID #120 tablet Promethazine [Phenergan TAB] 25 mg PO Q6HR PRN #20 tab PRN Reason: Nausea Spironolactone [Aldactone] 100 mg PO BID #60 tab Tamsulosin [Flomax] 0.4 mg PO QDAY #30 cap
--- NOTE | 2016-12-02 16:28 | Fluoroscopy Report ---
Retrograde pyelogram. History: Right ureteral stone. Findings: Retrograde injection of the right ureter demonstrates the proximal right ureteral stone. The ureter distal to the stone is normal in caliber. Ureteroscopy was performed, but the stone was extracted. A double-J ureteral stent was placed in satisfactory position and the patient was sent for lithotripsy.
[2016-12-02 17:05] VITALS: BP 128/66
--- NOTE | 2016-12-02 19:02 | Operative Report ---
PREOPERATIVE DIAGNOSES: Bilateral ureteral stones, left renal stones. POSTOPERATIVE DIAGNOSES: Bilateral ureteral stones, left renal stones. PROCEDURE: Cystoscopy, right retrograde pyelogram, right ureteroscopy, double-J stent (6 [place] 24 cm with an external string), left extracorporeal shockwave lithotripsy of the ureteral stone, staged procedure. SURGEON: Juan Brown MD ANESTHESIA: General. ESTIMATED BLOOD LOSS: Minimal. FLUIDS: Crystalloid. COMPLICATIONS: None. INDICATIONS: This patient is a 46-year-old female who presented to the Emergency Room with flank pain. CT of the abdomen and pelvis revealed bilateral ureteral stones and left renal stones. She was admitted for pain control, discussed options and she agreed to proceed with surgical intervention. She also had some renal insufficiency. DESCRIPTION OF PROCEDURE: The patient was taken to the operative suite, placed in a supine position. After adequate general anesthesia, placed in a dorsal lithotomy position, prepped and draped in a sterile fashion. Pancystourethroscopy was performed with 22 [place]or[place] cystoscope, no acute bladder pathology. Right retrograde pyelogram was obtained with an 8 [place] catheter and 8 mL of contrast. There was some narrowing of the lower to mid ureter. A 0.035 Glidewire was placed. Rigid ureteroscopy was performed. Erythema and edema of the distal ureter could be appreciated. Some small fragments could be appreciated as well. The scope was advanced up to the renal pelvis. No other stones could be appreciated. A 6 [place] 24 cm double-J stent with an external string was left indwelling. Her bladder was drained. She was then taken to the lithotripsy suite, placed in a supine position where her left 7 mm ureteral stone was localized in 2 planes using fluoroscopy. Extracorporal shockwave lithotripsy was administered with a maximum kV of 5, 2500 shocks. Also, she had what appears to be three additional stones in the renal pelvis. Two stones were administered 1500 shocks and then 1000 shocks to the other stone. She will require staged procedure. She was extubated and taken to the recovery room. She will go home once the medical service discharges her on Cipro, [place] and Flomax. Also, written information was given to her brother as well as discussion with the patient present. Her brother's name is Jelani Baxter. JOB# [id number] [facility]
--- NOTE | 2016-12-03 08:58 | Progress Note ---
Subjective Date of service: 12/03/16 Interval history: POD1, pt is discharged before f/u with anesthesia. Objective - Labs CBC & Chem 7: 12/02/16 04:20 12/02/16 04:20 Labs: Abnormal lab results 12/02/16 Range/Units 16:37 POC Glucose 124 H (70-105)
--- NOTE | 2016-12-07 13:03 | Query-Infection ---
Dear ____Rashawn Date:___12/07/16 Computer Systems Administrator/CDS:____Justine / Jose D Phone#:___[phone] Exercise your independent professional judgment when responding to this query. Questions asked do not imply a particular answer is desired or expected. We greatly appreciate your clarification on this issue. Clinical Documentation States: 46 year old female was admitted on 11/30/16. The hospitalist progress note (Dr. Morocho 12/01/16) states " Assessment and plan : Multiple renal stones, ureteral stones Right obstructive uropathy from stones." The discharge summary (Dr. Morocho) states " Discharge Diagnoses: (3) UTI ( urinary tract infection) " Pulse rate: 91 Respiratory rate: 81 Medications: IV ceftriaxone Clinical findings show: (please check applicable parameters) Infection, known /suspected, with some of the following indicators; Specify the infection: 3 General parameters [ ] Fever (core temp >38.30C or 100.40F) [ ] Hypothermia (core temp <36C) [ ] Heart rate >90 bpm [ ] Tachypnea: >20 bpm or pCO2 < 32 mmHg [ ] Altered mental status [ ] Significant edema / +ve fluid balance (>20 ml/kg 24 h) [ ] Hyperglycemia (Bl. glucose >110 mg/dl) w/o diabetes Inflammatory parameters [ ] Leukocytosis (white blood cell count >12,000/l) [ ] Leukopenia (white blood cell count <4,000/l) [ ] Bandemia (immature WBC > 10%) [ ] Leucocyte Left Shift [ ] Plasma procalcitonin>2 SD above the normal value Hemodynamic and tissue perfusion parameters [ ] Arterial hypotension(SBP <90 mmHg, MAP <70 mmHg,or a SBP drop >40 mmHg in adults) [ ] Hyperlactatemia (>3 mmol/l) [ ] Anion Gap (> 11mEG/l) [ ] Decreased capillary refill or mottling Organ dysfunction parameters [ ] Arterial hypoxemia (PaO2/FIO2 <300) [ ] Creatinine increase =0.5 mg/dl [ ] Acute oliguria (urine output <0.5 ml | kg |h or 45 mM/l for at least 2 hrs) [ ] Coagulation abnormalities (INR >1.5 or activated partial thromboplastin time >60 s) [ ] Ileus (absent jeannie wel sounds) [ ] Thrombocytopenia (platelet count <100,000/l) [ ] Hyperbilirubinemia (plasma total bilirubin >4 mg/dl) According to the clinical indications above, can Bacteremia be further specified? If so, please indicate below and in your Progress Notes and/ or Discharge Summary. Indicate if the condition was present on admission. PHYSICIAN RESPONSE: [ ] Sepsis [ ] Severe Sepsis [ ] Septic Shock [ ] Septicemia [ ] Sepsis now resolved [ ] SIRS due to non-infectious cause with organ dysfunction [ ] SIRS due to non-infectious cause without organ dysfunction [ ] Other: [ ] Comment/Explanation: Present on Admission: [ ] Yes (Y) [ ] Clinically undeterminable (W) [ ] No ( N) [ ] Ruled Out Please also document response in your Progress Notes and/or Discharge Summary and indicate if the condition was present on admission Notes: SIRS/ SIRS WITH ORGAN DYSFUNCTION Systemic inflammatory response syndrome (SIRS) generally refers to the systemic response to trauma/villavicencio or other insult such as Acute Myocardial Infarction, Acute Pancreatitis, and Major Surgery with symptoms including fever, tachycardia , tachypnea, and leukocytosis (1). BACTEREMIA Presence of viable bacteria in the circulating blood (2). This term is reserved for patients that do not manifest above SIRS response. SEPTICEMIA Generally refers to a systemic disease associated with the presence of pathological microorganisms or toxins in the blood, which can include bacteria, viruses, fungi or other organisms (1). SEPSIS Generally refers to SIRS due infection (1). SEVERE SEPSIS Generally refers to sepsis associated with acute organ dysfunction (1). SEPTIC SHOCK Generally refers to circulatory failure associated with severe sepsis (2), and defined as hypotension or hypoperfusion despite adequate fluid resuscitation (1 hour) (3). REFERENCES: 1. [place] [employer]/Society of Critical Care Medicine Consensus Conference. Definitions for sepsis and organ failure and guidelines for the use of innovative therapies in sepsis. Critical Care Med 1992;20:864 - 74. 2. Kuldip haddad MM, Abdirahman ROBERTS, Kyree JOYCE, Jaime E, Anton Mcgarry, Lisandro D, Taylor J, Lillie SM , Doug JL, Nicole G; International Sepsis Definitions Conference. 2001 SCCM/ESICM/ACCP/ATS/SIS International Sepsis Definitions Conference. Intensive Care Med. 2002;29(4):530-8. Epub 2002Jul 06. Review. PubMed PMID:[id number] 3. ICD-9-CM Official Guidelines for Coding and Reporting 4. Medscape Drugs, Diseases and Procedures references 5. [employer] Textbook of Internal Medicine. 18th Edition MTDD
--- NOTE | 2016-12-07 13:18 | Query-Kidney Disease ---
Dear Date:____12/07/16 Prenatal Genetic Counselor/CDS:___Justine / Jose D Phone#:___[phone] Exercise your independent professional judgment when responding to query. Questions asked do not imply a particular answer is desired or expected. We greatly appreciate your clarification on this issue. Clinical Documentation States: 46 year old female was admitted on 11/30/16 The hospitalist progress note (Dr. morocho 12/01/16) states " Assessment and plan : Multiple renal stones, ureteral stones Right obstructive uropathy from stones. " The discharge summary (Dr. Morocho) states " - Discharge Diagnoses (1) Diabetes mellitus type 2 in obese (2) Obstructive uropathy (3) UTI (urinary tract infection) " Clinical Findings Show: 11/30/16 12/02/16 Creatinine: 1.4 0.7 Please Clarify if you mean: Acute Renal Failure with or due to: [ ] Tubular Necrosis [ ] Cortical Necrosis [ ] Shock Kidney [ ] Vasomotor Nephropathy [ ] Lower Tubular Nephrosis [ ] Renal Tubular Stasis [ ] Tubular Nephrosis [ ] Medullary Necrosis [ ] Acute Renal Failure (unspecified) [ ] Other: [ ] Comment/Explanation: Chronic Kidney Disease (Please [place] applicable stage) 3 Stages Description GFR [ ] CKD Stage 1 90 mL/min or more [ ] CKD Stage 2 Mild decrease in Kidney function 60 to 89 mL/min [ ] CKD Stage 3 Moderate decrease in kidney function 30-59 [ ] CKD Stage 4 Severe decrease in kidney function 15-29 [ ] CKD Stage 5 Kidney failure; requiring dialysis or transplantation <15 [ ] ESRD Patient requiring dialysis for > 3 months or kidney transplant irrespective of level of GFR; Applicable for 1 year after kidney transplant [ ] Other: [ ] Comment/Explanation: Present on Admission: [ ] Yes (Y) [ ] Clinically undeterminable (W) [ ] No (N) Please also document response in your Progress Notes and/or Discharge Summary and indicate if the condition was present on admission MTDD
== END 2016-12-02 18:16 | disposition home health service (06) | DRG 669 ==
LOC: ED 10:07 → 3A 23:35
PROVIDERS: ADMIT Internal Medicine; ATTEND Internal Medicine
PROC: 0T768DZ Dilation of Right Ureter with Intraluminal Device, Via Natural or Artificial Opening Endoscopic (ICD-10-PCS; principal; 2016-12-02)
PROC: 0TC48ZZ Extirpation of Matter from Left Kidney Pelvis, Via Natural or Artificial Opening Endoscopic (ICD-10-PCS; 2016-12-02)
PROC: 0TC78ZZ Extirpation of Matter from Left Ureter, Via Natural or Artificial Opening Endoscopic (ICD-10-PCS; 2016-12-02)
DX: N13.2 Hydronephrosis with renal and ureteral calculous obstruction (principal); Z68.43 Body mass index [BMI] 50.0-59.9, adult; N39.0 Urinary tract infection, site not specified; E66.01 Morbid (severe) obesity due to excess calories; J45.909 Unspecified asthma, uncomplicated; E11.9 Type 2 diabetes mellitus without complications; N28.9 Disorder of kidney and ureter, unspecified; Z79.84 Long term (current) use of oral hypoglycemic drugs; Z71.3 Dietary counseling and surveillance
CPT/HCPCS: 36415; 74176; 74420; 80048; 80053; 81001; 82962; 83690; 84703; 85025; 85027; 87086; 94640; 96361; 96365; 96375; A4217; A9270-GY; C1758; C1769; C2617; J0696; J1100; J1170; J1644; J1885; J2250; J2270; J2370; J2405; J2704; J3010; J7030; Q9967